=== PATIENT | female | born 1970 | race Caucasian/White ===

== ENCOUNTER 2019-05-04 08:09 | Emergency (ER) | payer OTHER ==
[~2019-05-04] VITALS: Ht 162.6 cm; Wt 74.8 kg
[2019-05-04 08:10] VITALS: Ht 162.6 cm; Wt 74.8 kg
[2019-05-04 12:15] VITALS: BP 148/98
== END 2019-05-04 12:15 | disposition home or self-care (01) ==
LOC: ED 08:09
DX: R25.2 Cramp and spasm (principal); M79.651 Pain in right thigh; E78.00 Pure hypercholesterolemia, unspecified; Z88.8 Allergy status to other drugs, medicaments and biological substances
CPT/HCPCS: J1885